=== PATIENT | female | born 1965 | race Caucasian/White ===

== ENCOUNTER 2022-06-02 13:08 | Emergency (ER) | payer OTHER ==
[2022-06-02 13:17] VITALS: BP 156/97
--- NOTE | 2022-06-02 13:19 | ED Physician Documentation ---
PD HPI UPPER EXT INJURY - Stated complaint Stated Complaint: RT RING FINGER INJ - Chief complaint Chief Complaint: Trauma Ext - History obtained from History obtained from: Patient - History of Present Illness Location: Right, Finger (ring finger at PIP joint.) Type of injury: Fall (she was walking dog and it pulled her and she fell forward onto outstretched hand, with impact and pain to ring finger. No other injury except small abrasion tip of little finger.) Where injury occurred: [place] - onset: Today Timing - details: Abrupt onset Associated symptoms: Swelling, Other (deformity at ring finger) Similar symptoms before: Has not had sx before Review of Systems Skin: reports: Abrasion (s). denies: Laceration (s) Musculoskeletal: reports: Joint pain Neurologic: reports: Focal weakness (unable to move ring finger due to deformity.). denies: Numbness PD PAST MEDICAL HISTORY - Past Medical History Musculoskeletal: None - Allergies Allergies/Adverse Reactions: Allergies Allergy/AdvReac Type Severity Reaction Status Date / Time codeine Allergy Nausea Verified 06/02/22 13:18 erythromycin base Allergy Nausea Verified 06/02/22 13:18 PD ED PE NORMAL - Vitals Vital signs reviewed: Yes - General General: Alert and oriented X 3, Well developed/nourished, Other (appears in pain due to finger) - Derm Derm: Normal color, Warm and dry - Extremities Extremities: Other (right ring finger with dorsal dislocation of finger at pip joint. No lacerations. Small abrasion at tip of little finger. Normal cap refill in fingers tips. ) - Neuro Neuro: No motor deficit, No sensory deficit Results - Vitals Vitals: Vital Signs - 24 hr 06/02/22 13:14 Temperature 36.6 C Heart Rate 92 Respiratory 16 Rate Blood Pressure 156/97 H O2 Saturation 95 Oxygen O2 Source Room air - Rads (name of study) right ring finger Radiology: Prelim report reviewed, EMP read indepedently (dislocation at pip. there is small jaison of bone c/w possible avulsion fx. ), See rad report post reduction Radiology: EMP read indepedently (this was done to evaluate the position of the small avulsion, to ensure not in joint space. it appears to ulnar side. ) Procedures - Reduction Body part reduced: Right, Finger Fracture or dislocation: Dislocation Anesthesia: Digital block Reduction aftercare: NV intact, Xray confirms reduction, Alignment improved, Splint applied, Patient tolerated well PD Medical Decision Making - ED course Complexity details: re-evaluated patient (Clinically is reduced. Discussed with the patient and shared decision to jerad-ray it to ensure that small avulsion fracture is not in the joint space on the postreduction.), considered differential (feels dislocated certainly and will get xray to eval for fracture as well. ), d/w patient Departure - Departure Disposition: 01 Home, Self Care Clinical Impression: Accidental fall Qualifiers: Encounter type: initial encounter Qualified Code(s): W19.XXXA - Unspecified fall, initial encounter Finger dislocation Qualifiers: Encounter type: initial encounter Qualified Code(s): S63.259A - Unspecified dislocation of unspecified finger, initial encounter Condition: Stable Record reviewed to determine appropriate education?: Yes Instructions: ED Dislocation Finger Redu Comments: Protect the finger motion with the splint for the first week to 10 days in particular. Its okay to have it off for washing and cleaning etc. Have it on during use to protect the joint. You can go without the splint after that but try not to have any strong use such as heavy lifting or repetitive forceful use (gardening, shoveling, hand tools etc.) for about 3 to 4 weeks while the ligaments heal. There is a very tiny avulsion fracture of bone to the side of the joint. This should heal without any consequence. These typically heal well with's strength of the ligament for the joint with just "being nice to it". If it has a feeling of looseness of the joint or poor strength as it is healing after a few weeks, you could follow-up with your primary care or a hand specialist. Rarely would need subsequent repair but not never. I will be hurting over the next several days because of swelling and the injury of the ligament. Tylenol or ibuprofen as needed for pains. Discharge Date/Time: 06/02/22 14:04
--- NOTE | 2022-06-02 13:46 | XRAY Report ---
PROCEDURE: Finger(s) RT INDICATIONS: ring finger injury at [facility] TECHNIQUE: AP hand, 2 views of the fourth finger(s) acquired. COMPARISON: None FINDINGS: Bones: Dislocation of the proximal interphalangeal joint of the fourth finger can be seen. There is a likely 1 mm avulsion fracture seen along the dorsal aspect of this joint. No suspicious bony lesions. Mild generalized degenerative changes are seen. Soft tissues: No suspicious soft tissue calcifications. IMPRESSION: Dislocation of the proximal interphalangeal joint of the fourth finger, with a likely 1 mm avulsion f racture fragment. Reviewed by: Cam Aranda MD on 06/02/2022 12:45 PM [facility] Approved by: Cam Aranda MD on 06/02/2022 12:45 PM [facility] Station ID: [id number]
--- NOTE | 2022-06-02 14:05 | XRAY Report ---
PROCEDURE: Finger(s) RT INDICATIONS: post reduction eval TECHNIQUE: AP hand, 2 views of the fourth finger(s) acquired. COMPARISON: 06/02/2022, earlier in the day FINDINGS: Bones: The previously seen fourth finger fracture has now been relocated. There is a tiny 1 mm avuls ion fracture fragment seen along the ulnar aspect of the proximal fourth finger interphalangeal joint . There is a remote, unfused ulnar styloid fracture noted. There is a remote avulsion fracture fragment versus soft tissue calcification along the distalmost aspect of the fifth finger. Degenerative changes are seen throughout, which are worst involving the first carpometacarpal joint. No suspicious bony lesions. Soft tissues: No suspicious soft tissue calcifications. IMPRESSION: Fourth finger relocation. 1 mm avulsion fracture fragment seen. Reviewed by: Cam Aranda MD on 06/02/2022 1:03 PM [place] Approved by: Cam Aranda MD on 06/02/2022 1:03 PM [facility] Station ID: [id number]
== END 2022-06-02 14:04 | disposition home or self-care (01) ==
LOC: ED 13:08
DX: S63.284A Dislocation of proximal interphalangeal joint of right ring finger, initial encounter (principal); S62.604A Fracture of unspecified phalanx of right ring finger, initial encounter for closed fracture; W18.39XA Other fall on same level, initial encounter; Y93.K1 Activity, walking an animal; Y92.830 Public park as the place of occurrence of the external cause
CPT/HCPCS: 99283